=== PATIENT | female | born 2000 | race Caucasian/White ===

== ENCOUNTER 2021-01-19 17:24 | Outpatient (CLI) | payer OTHER | END 2021-01-19 20:07 | disposition home or self-care (01) | LOC: GENOP 17:24 | DX: O47.03 False labor before 37 completed weeks of gestation, third trimester (principal); Z3A.34 34 weeks gestation of pregnancy | CPT/HCPCS: 81001; G0463 ==

== ENCOUNTER 2021-02-03 21:29 | Outpatient (CLI) | payer OTHER | END 2021-02-03 23:06 | disposition home or self-care (01) | LOC: GENOP 21:29 | DX: O62.9 Abnormality of forces of labor, unspecified (principal); Z3A.37 37 weeks gestation of pregnancy | CPT/HCPCS: G0463 ==

== ENCOUNTER 2021-02-18 16:43 | Inpatient (IN) | payer OTHER ==
[~2021-02-18] VITALS: Ht 162.6 cm; Wt 118.8 kg
[2021-02-18 17:47] LABS: HEMOGLOBIN 10.4 gm/dl (12.3-15.3); RED BLOOD COUNT 3.57 M/UL (4.00-5.10); WHITE BLOOD COUNT 11.5 K/UL (4.5-11.0)
[2021-02-18] MEDS ORDERED: FERROUS SULFAT325 MG PO (18:39)
[2021-02-18] MEDS ORDERED: METOCLOPRAMIDE10 MG PO (18:41)
[2021-02-20 04:36] LABS: HEMOGLOBIN 9.6 gm/dl (12.3-15.3)
== END 2021-02-21 15:20 | disposition home or self-care (01) | DRG 807 ==
LOC: GENOP 16:43 → OB 16:56
PROVIDERS: ADMIT Obstetrics & Gynecology
PROC: 10E0XZZ Delivery of Products of Conception, External Approach (ICD-10-PCS; principal; 2021-02-18)
PROC: 0U7C7ZZ Dilation of Cervix, Via Natural or Artificial Opening (ICD-10-PCS; 2021-02-18)
PROC: 3E033VJ Introduction of Other Hormone into Peripheral Vein, Percutaneous Approach (ICD-10-PCS; 2021-02-18)
PROC: 4A1HXCZ Monitoring of Products of Conception, Cardiac Rate, External Approach (ICD-10-PCS; 2021-02-18)
DX: O36.63X0 Maternal care for excessive fetal growth, third trimester, not applicable or unspecified (principal); Z37.0 Single live birth; O99.214 Obesity complicating childbirth; E66.9 Obesity, unspecified; Z3A.38 38 weeks gestation of pregnancy; O66.0 Obstructed labor due to shoulder dystocia; O99.824 Streptococcus B carrier state complicating childbirth; Z20.822 Contact with and (suspected) exposure to COVID-19
CPT/HCPCS: 36415; 51702; 81001; 82800; 85014; 85018; 85025; J0290; J1580; J2210; J2405; J2590; J7120; U0003